=== PATIENT | male | born 1970 | race Caucasian/White ===

== ENCOUNTER → 2017-08-09 | Day surgery (SDC) | payer BC ==
[~2017-08-09] MED LIST: LIDOCAINE 1% PF 2 ML VIAL. ID; LIDOCAINE 2% PF Vial for OR 5 ML VIAL.; MORPHINE SULFATE 2 MG/ML DISP.SYRIN. IV; ONDANSETRON PF 4 MG/2 ML VIAL. IV; PROCHLORPERAZINE 10 MG/2 ML VIAL. IV; PROPOFOL 40 ML IV; fentaNYL PF VIAL 100 MCG/2 ML VIAL IV
[2017-08-09] MEDS: IV RINGERS,LACTATED 1000ML 1,000 ML IV (06:53)
== END | disposition home or self-care (01) ==
LOC: ENDOS 05:48
DX: K62.1 Rectal polyp (principal); K64.1 Second degree hemorrhoids; K58.9 Irritable bowel syndrome, unspecified; I10 Essential (primary) hypertension; E78.00 Pure hypercholesterolemia, unspecified; F17.210 Nicotine dependence, cigarettes, uncomplicated; Z85.828 Personal history of other malignant neoplasm of skin; Z90.49 Acquired absence of other specified parts of digestive tract; Z98.52 Vasectomy status; Z72.89 Other problems related to lifestyle
CPT/HCPCS: 45380; 88305; J2704

== ENCOUNTER → 2017-08-12 | Outpatient (CLI) | payer BC | END | disposition home or self-care (01) | LOC: NM 08:40 | DX: R06.09 Other forms of dyspnea (principal); I10 Essential (primary) hypertension; E78.00 Pure hypercholesterolemia, unspecified | CPT/HCPCS: 78452; 93017; 96374; 96376; A9500 ==

== ENCOUNTER → 2017-08-19 | Outpatient (CLI) | payer BC ==
[2017-08-19] MEDS: IOHEXOL 240 MG/ML 50ML VIAL. PO (16:43)
[2017-08-19] MEDS: IOHEXOL 300 MG/ML 100ML VIAL. IV (16:43)
== END | disposition home or self-care (01) ==
LOC: CT 16:01
DX: M43.17 Spondylolisthesis, lumbosacral region (principal); M43.06 Spondylolysis, lumbar region; K57.30 Diverticulosis of large intestine without perforation or abscess without bleeding
CPT/HCPCS: 74177; Q9966; Q9967

== ENCOUNTER → 2017-08-29 | Outpatient (CLI) | payer BC | END | disposition home or self-care (01) | LOC: RAD 16:20 | DX: R06.09 Other forms of dyspnea (principal) | CPT/HCPCS: 71046 ==

== ENCOUNTER 2017-10-29 08:54 | Emergency (ER) | payer BC ==
[~2017-10-29] VITALS: Ht 175.3 cm; Wt 96.6 kg
[~2017-10-29 08:54] MED LIST changes: +ASPI81TA50 PO; +ATOR20TA58 PO; +CETI10TA22 PO; -LIDOCAINE 1% PF 2 ML VIAL. ID; -LIDOCAINE 2% PF Vial for OR 5 ML VIAL.; -MORPHINE SULFATE 2 MG/ML DISP.SYRIN. IV; -ONDANSETRON PF 4 MG/2 ML VIAL. IV; -PROCHLORPERAZINE 10 MG/2 ML VIAL. IV; -PROPOFOL 40 ML IV; -fentaNYL PF VIAL 100 MCG/2 ML VIAL IV
--- NOTE | 2017-10-29 09:10 | PHYS DOC ---
Past Medical History Past Medical History: No Pertinent History Past Surgical History: Cholecystectomy Alcohol Use: Occasionally Drug Use: None Adult General Chief Complaint Chief Complaint: ABDOMINAL PAIN HPI HPI Patient is a 47 year old.-year-old male who presents today complaining of a sharp 8 out of 10 generalized abdominal pain with nausea and diarrhea that began yesterday. Patient is also complaining of body aches and chills. Denies any bloody stools. Review of Systems Review of Systems Constitutional: Reports body aches and chills. Denies fever Eyes: Denies change in visual acuity, redness, or eye pain [] HENT: Denies nasal congestion or sore throat [] Respiratory: Denies cough or shortness of breath [] Cardiovascular: No additional information not addressed in HPI [] GI: Reports generalized abdominal pain, nausea, diarrhea denies vomiting. : Denies dysuria or hematuria [] Musculoskeletal: Denies back pain or joint pain [] Integument: Denies rash or skin lesions [] Neurologic: Denies headache, focal weakness or sensory changes [] All other systems were reviewed and found to be within normal limits, except as documented in this note. Current Medications Current Medications Current Medications Medications (Trade) Dose Ordered Sig/Eula Start Time Stop Time Status Last Admin Dose Admin Dicyclomine HCl (Bentyl) 20 mg 1X ONCE 10/29/17 09:15 10/29/17 09:16 DC 10/29/17 09:44 20 MG Famotidine (Pepcid Vial) 20 mg 1X ONCE 10/29/17 09:15 10/29/17 09:16 DC 10/29/17 09:49 20 MG Fentanyl Citrate (Fentanyl 2ml Vial) 50 mcg 1X ONCE 10/29/17 09:15 10/29/17 09:16 DC 10/29/17 09:53 50 MCG Info (CONTRAST GIVEN -- Rx MONITORING) 1 each PRN DAILY PRN 10/29/17 10:00 10/31/17 09:59 Iohexol (Omnipaque 300 Mg/ml) 75 ml 1X ONCE 10/29/17 10:00 10/29/17 10:01 DC 10/29/17 10:05 75 ML Ondansetron HCl (Zofran) 4 mg 1X ONCE 10/29/17 09:15 10/29/17 09:16 DC 8/28/18 09:46 4 MG Sodium Chloride 1,000 ml @ 1,000 mls/hr 1X ONCE 10/29/17 09:15 10/29/17 10:14 DC 10/29/17 09:41 1,000 MLS/HR Allergies Allergies Allergies Coded Allergies Type Severity Reaction Last Updated Verified No Known Drug Allergies 08/09/17 No Physical Exam Physical Exam Constitutional: Well developed, well nourished, no acute distress, non-toxic appearance. [] HENT: Normocephalic, atraumatic, bilateral external ears normal, oropharynx moist, no oral exudates, nose normal. [] Eyes: PERRLA, EOMI, conjunctiva normal, no discharge. [] Neck: Normal range of motion, no tenderness, supple, no stridor. [] Cardiovascular:Heart rate regular rhythm, no murmur [] Lungs & Thorax: Bilateral breath sounds clear to auscultation [] Abdomen: Bowel sounds normal, soft, no tenderness, no masses, no pulsatile masses. [] Skin: Warm, dry, no erythema, no rash. [] Back: No tenderness, no CVA tenderness. [] Extremities: No tenderness, no cyanosis, no clubbing, ROM intact, no edema. [] Neurologic: Alert and oriented X 3, normal motor function, normal sensory function, no focal deficits noted. [] Psychologic: Affect normal, judgement normal, mood normal. [] Current Patient Data Vital Signs Vital Signs Date Time Temp Pulse Resp B/P (MAP) Pulse Ox O2 Delivery O2 Flow Rate FiO2 10/29/17 10:41 74 14 116/66 (83) 96 Room Air 10/29/17 09:20 98.0 98.0 Lab Values Laboratory Tests Test 10/29/17 09:12 10/29/17 09:20 Urine Collection Type Unknown Urine Color Yellow Urine Clarity Clear Urine pH 6.5 Urine Specific [place] <=1.005 Urine Protein Negative mg/dL (NEG-TRACE) Urine Glucose (UA) Negative mg/dL (NEG) Urine Ketones (Stick) Negative mg/dL (NEG) Urine Blood Negative (NEG) Urine Nitrite Negative (NEG) Urine Bilirubin Negative (NEG) Urine Urobilinogen Dipstick 0.2 mg/dL (0.2 mg/dL) Urine Leukocyte Esterase Negative (NEG) Urine RBC 0 /HPF (0-2) Urine WBC 0 /HPF (0-4) Urine Squamous Epithelial Cells Occ /LPF Urine Bacteria 0 /HPF (0-FEW) Urine Opiates Screen Neg (NEG) Urine Methadone Screen Neg (NEG) Urine Barbiturates Neg (NEG) Urine Phencyclidine Screen Neg (NEG) Urine Amphetamine/Methamphetamine Neg (NEG) Urine Benzodiazepines Screen Neg (NEG) Urine Cocaine Screen Neg (NEG) Urine Cannabinoids Screen Neg (NEG) Urine Ethyl Alcohol Neg (NEG) White Blood Count 4.5 x10^3/uL (4.0-11.0) Red Blood Count 5.19 x10^6/uL (4.30-5.70) Hemoglobin 16.2 g/dL (13.0-17.5) Hematocrit 46.6 % (39.0-53.0) Mean Corpuscular Volume 90 fL (79-100) Mean Corpuscular Hemoglobin 31 pg (25-35) Mean Corpuscular Hemoglobin Concent 35 g/dL (31-37) Red Cell Distribution Width 13.6 % (11.5-14.5) Platelet Count 202 x10^3/uL (140-400) Neutrophils (%) (Auto) 77 % (31-73) H Lymphocytes (%) (Auto) 14 % (24-48) L Monocytes (%) (Auto) 9 % (0-9) Eosinophils (%) (Auto) 0 % (0-3) Basophils (%) (Auto) 0 % (0-3) Neutrophils # (Auto) 3.4 x10^3uL (1.8-7.7) Lymphocytes # (Auto) 0.6 x10^3/uL (1.0-4.8) L Monocytes # (Auto) 0.4 x10^3/uL (0.0-1.1) Eosinophils # (Auto) 0.0 x10^3/uL (0.0-0.7) Basophils # (Auto) 0.1 x10^3/uL (0.0-0.2) Sodium Level 138 mmol/L (136-145) Potassium Level 3.8 mmol/L (3.5-5.1) Chloride Level 103 mmol/L (98-107) Carbon Dioxide Level 27 mmol/L (21-32) Anion Gap 8 (6-14) Blood Urea Nitrogen 9 mg/dL (8-26) Creatinine 1.1 mg/dL (0.7-1.3) Estimated GFR (Cockcroft-Gault) 72.4 BUN/Creatinine Ratio 8 (6-20) Glucose Level 112 mg/dL (70-99) H Calcium Level 8.6 mg/dL (8.5-10.1) Total Bilirubin 0.8 mg/dL (0.2-1.0) Aspartate Amino Transferase (AST) 27 U/L (15-37) Alanine Aminotransferase (ALT) 56 U/L (16-63) Alkaline Phosphatase 49 U/L (46-116) Total Protein 7.6 g/dL (6.4-8.2) Albumin 4.1 g/dL (3.4-5.0) Albumin/Globulin Ratio 1.2 (1.0-1.7) Lipase 115 U/L (73-393) Ethyl Alcohol Level < 10 mg/dL (0-10) Laboratory Tests 10/29/17 09:20 Laboratory Tests 10/29/17 09:20 EKG EKG [] Radiology/Procedures Radiology/Procedures []PROCEDURE: CT ABD PELV W/ IV CONTRST ONLY CT abdomen and pelvis with contrast History: Generalized abdominal pain, nausea and diarrhea for one day Technique: After the administration of intravenous contrast, CT imaging was performed of the abdomen and pelvis. No oral contrast was given as per request. Multiplanar images are reviewed. Exposure: One or more of the following individualized dose reduction techniques were utilized for this examination: 1. Automated exposure control 2. Adjustment of the mA and/or kV according to patient size 3. Use of iterative reconstruction technique. Contrast: 75 cc Omnipaque 300 Comparison: August 19, 2017 Findings: There is stable reticular density of the left lung base anteriorly likely due to fibrotic change. There is no significant abnormality of the liver, spleen, pancreas, adrenal glands. Both kidneys enhance without hydronephrosis. There has been cholecystectomy. Accurate evaluation of bowel is limited without oral contrast. There is probable small bowel wall thickening greatest in the left abdomen. There is no evidence of bowel obstruction, free fluid, or free air. Normal appendix is visualized. There is mild colonic diverticulosis. There is bilateral L5 spondylolysis, minimal grade 1 anterior spondylolisthesis L5-S1. There is moderate to severe degenerative disc disease L5-S1. There is also disc osteophyte complex at L5-S1 contributing to at least moderate neural foramina compromise bilaterally with contact exiting L5 nerve roots. Impression: 1. Evaluation of bowel is limited without oral contrast, suspected small bowel wall thickening greater in the left abdomen as may be seen with enteritis. There is no CT evidence of acute appendicitis. 2. There is bilateral L5 spondylolysis, mild grade 1 anterior spondylolisthesis at L5-S1. There is also degenerative disc disease and spondylosis at L5-S1. There is at least moderate neural foramina compromise bilaterally at L5-S1 with contact exiting L5 nerve roots bilaterally. Electronically signed by: Ilya Lim MD (10/29/2017 10:43 AM) [facility] [id number] DICTATED and SIGNED BY: ILYA LIM MD DATE: 10/29/17 1035 Course & Med Decision Making Course & Med Decision Making Pertinent Labs and Imaging studies reviewed. (See chart for details) This is a 47-year-old male patient presenting to the ED today with generalized abdominal pain, nausea and diarrhea since yesterday. CBC with normal WBC, normal hemoglobin and hematocrit, CMP with no acute findings, lipase is normal, CT of the abdomen and pelvic with IV contrast was suspicious for enteritis. Patient is afebrile, vitals are stable. Will be discharged with Zofran and dicyclomine. Follow-up with primary care doctor in 1-2 weeks. Also provided GI for follow-up. Provided return precautions and discharged in stable condition. Dragon Disclaimer Dragon Disclaimer This electronic medical record was generated, in whole or in part, using a voice recognition dictation system. Departure Departure Impression: Primary Impression: Enteritis Disposition: 01 HOME, SELF-CARE Condition: STABLE Referrals: JENNIFER MILLER MD (PCP) Follow-up in 1-2 weeks RIMA CHURCH MD follow up in 1-2 weeks Patient Instructions: Viral Gastroenteritis Additional Instructions: You were evaluated in the emergency room for abdominal pain with nausea and diarrhea, your Ct was noted to have enteritis. Typically this is a viral infection. It runs its own course. Take the prescribed medications as needed for pain and nausea. Push fluids. Maintain good hand hygiene. Follow-up with your doctor in 1-2 weeks. Scripts Diphenoxylate Hcl/Atropine (LOMOTIL TABLET) 1 Each Tablet 1 TAB PO TID PRN for DIARRHEA, #20 TAB Prov: MUTUNGA,CAROLINA [employer] 10/29/17 Dicyclomine Hcl (DICYCLOMINE HCL) 20 Mg Tablet 1 TAB PO TID, #30 TAB 1 Refill Prov: CAROLINA TILLEY APRN 10/29/17 Ondansetron (ZOFRAN ODT) 4 Mg Tab.rapdis 1 TAB SL Q8HRS, #15 TAB Prov: CAROLINA TILLEY APRN 10/29/17 CAROLINA TILLEY APRN Oct 29, 2017 09:10
[2017-10-29] MEDS ORDERED: IV NORMAL SALINE 1000ML BAG 1,000 ML IV ONE (09:15)
[2017-10-29] MEDS ORDERED: fentaNYL PF VIAL 100 MCG/2 ML VIAL IV ONE (09:15)
[2017-10-29] MEDS ORDERED: DICYCLOMINE HCL 10 MG CAPSULE PO ONE (09:15)
[2017-10-29] MEDS ORDERED: ONDANSETRON PF 4 MG/2 ML VIAL. IV ONE (09:15)
[2017-10-29] MEDS ORDERED: FAMOTIDINE 20 MG/2 ML VIAL IVP ONE (09:15)
[2017-10-29 09:25] LABS: BILIRUBIN,URINE NEGATIVE (NEG); CLARITY,URINE CLEAR; COLOR,URINE YELLOW; NITRITE,URINE NEGATIVE (NEG); PH,URINE 6.5; PROTEIN,URINE NEGATIVE (NEG-TRACE); UROBILINOGEN,URINE 0.2 mg/dL (0.2 mg/dL)
[2017-10-29 09:32] LABS: BARBITURATES NEG (NEG); BENZODIAZEPINES NEG (NEG); CANNABINOIDS NEG (NEG); COCAINE NEG (NEG); METHADONE NEG (NEG); OPIATES NEG (NEG); PHENCYCLIDINE NEG (NEG)
[2017-10-29 09:35] LABS: AMPHETAMINE/METHAMPHETAMINE NEG (NEG)
[2017-10-29 09:36] LABS: BACTERIA,URINE 0 /HPF (0-FEW); RBC,URINE 0 /HPF (0-2); SQUAMOUS EPITHELIAL CELL,UR OCC /LPF; WBC,URINE 0 /HPF (0-4)
[2017-10-29 09:42] LABS: BASO % 0 % (0-3); EOS % 0 % (0-3); HEMATOCRIT 46.6 % (39.0-53.0); HEMOGLOBIN 16.2 g/dL (13.0-17.5); LYMPH % 14 % (24-48); MEAN CORPUSCULAR HEMOGLOBIN 31 pg (25-35); MEAN CORPUSCULAR HGB CONC 35 g/dL (31-37); MEAN CORPUSCULAR VOLUME 90 fL (79-100); MONO % 9 % (0-9); NEUT % 77 % (31-73); PLATELET COUNT 202 x10^3/uL (140-400); RED BLOOD COUNT 5.19 x10^6/uL (4.30-5.70); RED CELL DISTRIBUTION WIDTH 13.6 % (11.5-14.5); WHITE BLOOD COUNT 4.5 x10^3/uL (4.0-11.0)
[2017-10-29 09:43] LABS: BASO # 0.1 x10^3/uL (0.0-0.2); LYMPH # 0.6 x10^3/uL (1.0-4.8); MONO # 0.4 x10^3/uL (0.0-1.1); NEUT # 3.4 x10^3uL (1.8-7.7)
[2017-10-29 09:57] LABS: CALCIUM 8.6 mg/dL (8.5-10.1); CREATININE 1.1 mg/dL (0.7-1.3); GFR 72.4; POTASSIUM 3.8 mmol/L (3.5-5.1)
[2017-10-29] MEDS ORDERED: CONTRAST GIVEN. MC PRN (10:00)
[2017-10-29] MEDS ORDERED: IOHEXOL 300 MG/ML 100ML VIAL. IV ONE (10:00)
[2017-10-29 10:02] LABS: ALBUMIN 4.1 g/dL (3.4-5.0); ALBUMIN/GLOBULIN RATIO 1.2 (1.0-1.7); TOTAL BILIRUBIN 0.8 mg/dL (0.2-1.0); TOTAL PROTEIN 7.6 g/dL (6.4-8.2)
--- NOTE | 2017-10-29 10:46 | RAD ---
CT abdomen and pelvis with contrast History: Generalized abdominal pain, nausea and diarrhea for one day Technique: After the administration of intravenous contrast, CT imaging was performed of the abdomen and pelvis. No oral contrast was given as per request. Multiplanar images are reviewed. Exposure: One or more of the following individualized dose reduction techniques were utilized for this examination: 1. Automated exposure control 2. Adjustment of the mA and/or kV according to patient size 3. Use of iterative reconstruction technique. Contrast: 75 cc Omnipaque 300 Comparison: August 19, 2017 Findings: There is stable reticular density of the left lung base anteriorly likely due to fibrotic change. There is no significant abnormality of the liver, spleen, pancreas, adrenal glands. Both kidneys enhance without hydronephrosis. There has been cholecystectomy. Accurate evaluation of bowel is limited without oral contrast. There is probable small bowel wall thickening greatest in the left abdomen. There is no evidence of bowel obstruction, free fluid, or free air. Normal appendix is visualized. There is mild colonic diverticulosis. There is bilateral L5 spondylolysis, minimal grade 1 anterior spondylolisthesis L5-S1. There is moderate to severe degenerative disc disease L5-S1. There is also disc osteophyte complex at L5-S1 contributing to at least moderate neural foramina compromise bilaterally with contact exiting L5 nerve roots. Impression: 1. Evaluation of bowel is limited without oral contrast, suspected small bowel wall thickening greater in the left abdomen as may be seen with enteritis. There is no CT evidence of acute appendicitis. 2. There is bilateral L5 spondylolysis, mild grade 1 anterior spondylolisthesis at L5-S1. There is also degenerative disc disease and spondylosis at L5-S1. There is at least moderate neural foramina compromise bilaterally at L5-S1 with contact exiting L5 nerve roots bilaterally. Electronically signed by: Anand Corcoran MD (10/29/2017 10:43 AM) [id number]
[2017-10-29 11:00] VITALS: BP 116/64
[2017-10-29] MEDS ORDERED: DICY20TA3 PO (11:29)
[2017-10-29] MEDS ORDERED: ONDA4TAB10 SL (11:29)
[2017-10-29] MEDS ORDERED: DIPH1TAB PO (11:29)
== END 2017-10-29 11:30 | disposition home or self-care (01) ==
LOC: ER 08:54
DX: K52.9 Noninfective gastroenteritis and colitis, unspecified (principal); Z90.49 Acquired absence of other specified parts of digestive tract
CPT/HCPCS: 36415; 74177; 80053; 80307; 81001; 83690; 85025; 96374; 96375; 99285; G0480; J2405; J3010; J7030; Q9967; S0028; G0479

== ENCOUNTER → 2017-12-20 | Outpatient (CLI) | payer BC ==
[~2017-12-20] MED LIST changes: +DICY20TA3 PO; +DIPH1TAB PO; +ONDA4TAB10 SL
--- NOTE | 2017-12-20 14:41 | RAD ---
CT CHEST WO CONTRAST dated 12/20/2017 2:16 PM Indication: [id number]. Comparison: No comparison is available. Technique: Contiguous axial imaging of the chest performed without the administration of intravenous contrast. One or more of the following individualized dose reduction techniques were utilized for this examination: 1. Automated exposure control 2. Adjustment of the mA and/or kV according to patient size 3. Use of iterative reconstruction technique Findings: Heart size within normal limits. No pericardial effusion. No mediastinal, hilar or axillary lymphadenopathy. The thyroid gland is unremarkable. Central airways are patent. There is some linear opacity in the right middle lobe, likely atelectasis or scar. Lungs are otherwise clear. No consolidation or pleural effusion. No pneumothorax. Limited images of the upper abdomen are unremarkable. Gallbladder is surgically absent. No significant bony abnormality. IMPRESSION: 1. No acute abnormality of chest. 2. Minimal scar or atelectasis right middle lobe. Electronically signed by: Rakesh Crook MD (12/20/2017 2:38 PM) [id number]
== END | disposition home or self-care (01) ==
LOC: CT 14:04
PROVIDERS: ATTEND Internal Medicine Critical Care Medicine
DX: R06.00 Dyspnea, unspecified (principal)
CPT/HCPCS: 71250